=== PATIENT | female | born 2000 | race Caucasian/White ===

== ENCOUNTER 2020-05-08 10:29 | Outpatient (REF) | payer OTHER, SELFPAY | END 2020-05-08 10:30 | disposition home or self-care (01) | LOC: HO.LAB 10:29 | PROVIDERS: Visit Provider Internal Medicine | DX: Z20.828 Contact with and (suspected) exposure to other viral communicable diseases (principal) | CPT/HCPCS: C9803; U0003 ==

== ENCOUNTER 2021-05-31 10:10 | Outpatient (REF) | payer OTHER, SELFPAY | END 2021-05-31 10:11 | disposition home or self-care (01) | LOC: HO.LAB 10:10 | PROVIDERS: Visit Provider Internal Medicine | DX: Z13.89 Encounter for screening for other disorder (principal) | CPT/HCPCS: C9803; U0003; U0005 ==

== ENCOUNTER 2021-06-06 08:29 | Outpatient (REF) | payer OTHER, SELFPAY | END 2021-06-06 08:30 | disposition home or self-care (01) | LOC: HO.HMGCLDS 08:29 | PROVIDERS: Visit Provider Internal Medicine | DX: Z20.822 Contact with and (suspected) exposure to COVID-19 (principal) | CPT/HCPCS: C9803; U0003; U0005 ==